=== PATIENT | female | born 1975 | race Caucasian/White ===

== ENCOUNTER → 2021-05-16 02:22 | Outpatient (CLI) | payer OTHER, SELFPAY ==
[2021-05-17 15:38] LABS: SARS-CoV-2 RNA PCR Negative
== END ==
PROVIDERS: Visit Provider Surgery Plastic and Reconstructive Surgery
DX: Z01.812 Encounter for preprocedural laboratory examination (principal); Z20.822 Contact with and (suspected) exposure to COVID-19
CPT/HCPCS: C9803; U0003; U0005

== ENCOUNTER 2021-05-16 08:35 | Outpatient (CLI) | payer OTHER, SELFPAY ==
--- NOTE | 2021-05-16 08:41 | ECG_ITS ---
Measurements Intervals [place] Rate: 88 P: 44 ND: 164 QRS: 52 QRSD: 88 T: 28 QT: 335 QTc: 406 Interpretive Statements SINUS RHYTHM MINIMAL Q WAVES- INFERIOR LEADS NONSPECIFIC T-WAVE ABNORMALITY- ANTERIOR LEADS BASELINE ARTIFACT- I, III, V3, V5-V6 BORDERLINE ECG Electronically Signed On 05-16-2021 8:51:01 CDT by Olaf Desir D.O.
== END 2021-05-16 08:36 | disposition home or self-care (01) ==
LOC: ANHSURGERY 08:39
PROVIDERS: Visit Provider Surgery Plastic and Reconstructive Surgery
DX: I10 Essential (primary) hypertension (principal); Z01.818 Encounter for other preprocedural examination; R94.31 Abnormal electrocardiogram [ECG] [EKG]
CPT/HCPCS: 93005

== ENCOUNTER 2021-05-19 01:20 | Day surgery (SDC) | payer OTHER, SELFPAY ==
[2021-05-12 15:55] VITALS: BMI 35.2
--- NOTE | 2021-05-18 10:13 | WPDANESEPPF ---
Anes - Initial Pre Proc Eval Procedure: Operation Date: 05/19/21 12:00 Proposed Procedures p Bilateral Breast Reduction - Edmond Doe MD Date/Time: 05/18/21 10:13 Surgeon: Edmond Doe MD Pre Op Diagnosis: macromastia Patient Data Age: 46 Gender: F Height: 1.7 m Weight: 102.06 kg Allergies Allergy/AdvReac Type Severity Reaction Status Date / Time amoxicillin Allergy Mild Rash Verified 05/19/21 10:19 Penicillins Allergy Mild Rash Verified 05/19/21 10:19 Home Medications Medication Instructions Recorded Confirmed Type aspirin 81 mg tablet,delayed 81 mg PO DAILY 04/06/21 05/12/21 History release mecobalamin (vitamin B12) IM [id number] 04/06/21 History metoprolol succinate 25 mg 25 mg PO HS 04/06/21 05/19/21 History tablet,extended release 24 hr omeprazole 20 mg capsule,delayed 20 mg PO HS 04/06/21 05/12/21 History release sertraline 100 mg tablet 100 mg PO HS 04/06/21 05/12/21 History tumeric 100 mg-neeraj 150 mg-olive 1 cap PO DAILY 04/06/21 05/19/21 History 50 mg-oreg 150 mg-caprylate capsule acetaminophen [Tylenol Arthritis] 650 mg PO Q12H PRN 05/12/21 05/12/21 History cholecalciferol (vitamin D3) 125 mcg PO DAILY 05/12/21 05/19/21 History [Vitamin D3] cyclobenzaprine [Flexeril] 5 mg PO HS PRN 05/12/21 05/12/21 History docusate sodium 100 mg capsule 100 mg PO BID #14 cap 05/16/21 Rx enoxaparin 40 mg/0.4 mL 40 mg SUBCUT DAILY 14 Days #5.6 ml 05/16/21 05/16/21 Rx subcutaneous syringe hydrocodone 5 mg-acetaminophen 325 1 tablet PO Q6H PRN #15 tablet 05/16/21 05/16/21 Rx mg tablet ondansetron HCl 4 mg tablet 4 mg PO Q6H PRN #30 tablet 05/16/21 Rx Patient hx anesthesia problems: post op nausea/vomiting Family hx anesthesia problems: none PMFSH Past Medical History Medical History (Updated 05/16/21 @ 10:43 by Conchis Arango CMA) Calcium pyrophosphate deposition disease Factor 5 Leiden mutation, heterozygous High cholesterol Hypertension Surgical History Surgical History (Updated 05/18/21 @ 10:13 by Lowell Matthews DO) History of cholecystectomy History of hernia repair History of knee surgery Right ACL x2 Left ACL History of tubal ligation Social History Social History Smoking status: Never smoker Second hand tobacco smoke exposure: No Alcohol intake: current Alcohol use details: socially; 4-6 drinks every few weeks maybe Substance use: unknown Substance use type: does not use Living arrangements: with family Spiritual care concerns: No Anes - Eval Final PreProcedure Day of Procedure 05/18/21 10:13 Patient weight: obese Heart: regular rate and rhythm Lungs: clear to auscultation and normal air movement Airway: Mallampati scale class II Neurological: alert and oriented Last oral intake: >/= 8 hours ASA classification: III Emergent: no Anesthetic plan: proceed Anesthesia type and monitoring: general LMA and standard monitoring Informed Consent: The patient's anesthetic plan and its attendant risks and benefits were discussed with the patient/family/POA. Questions were solicited and answers provided to the satisfaction of the patient/family/POA.
[2021-05-19] VITALS (8 sets, daily range): BP systolic 104–144; BP diastolic 58–82; PULSE 77–109; RESP 10–22; TEMP 36.5–36.6; O2SAT 92–100; BMI 35.1
[2021-05-19] MEDS: LACTATED RINGERS 1,000 ML 30 ML IV CONT ×2 (10:50→15:31)
[2021-05-19 11:23] LABS: Urine Cotinine NEGATIVE
[2021-05-19] MEDS: FAMOTIDINE 20 MG/2 ML VIAL IV PUSH (11:49)
[2021-05-19] MEDS: SCOPOLAMINE 1.5 MG PATCH TRANSDERM (11:49)
--- NOTE | 2021-05-19 11:49 | SUR.PREOP ---
1149- Notified patient procedure start time will be delayed. Patient verbalized understanding.
--- NOTE | 2021-05-19 12:24 | WPDHPUPDATE1 ---
History and Physical Update Update Date/Time: 05/19/21 12:24 History and Physical has been reviewed, including an updated exam of the patient. There are NO changes in the patient's condition. Risks, benefits, and alternatives have been discussed and questions answered. Patient agrees to proceed with procedure.
--- NOTE | 2021-05-19 12:50 | W.PM.PROC2 ---
Procedure Note - Detailed Date of Procedure 05/19/21 Pre-op Diagnosis macromastia Post-op Diagnosis same Procedure Performed Bilateral Reduction Mammaplasty Surgeon Edmond Doe MD Anesthesia general Findings Bilateral Inverted T Superior Pedicle Reduction Mammplasty Tissure removed: Right - 793.5 grams Left - 784.7 grams Description of Procedure She is here today for bilateral breast reduction. Previously and again today the risks, benefits, alternatives were discussed in extensive detail. I wanted her to be very realistic about the risks involved as well as expectations. We discussed aftercare and what to monitor for. She understands we can never guarantee final breast size and there will always be asymmetry. I was very upfront and honest about the risks of sensation change and even nipple loss (). Made sure answered all of her questions to her satisfaction today and consent was obtained. She was marked in the preoperative holding area with their verification. The patient was taken to the operating room placed supine on the operating table. Anesthesia was provided by anesthesiology. She was prepped and draped in a standard sterile fashion. A surgical time-out was taken. Stab incisions were made and I tumessed with a tumescent solution. I marked out the nipple-areolar complex at 42 mm. I then de-epithelialized the pedicle. The pedicle was well left well more than 2 cm in thickness. I then removed the inferior portion of the breast as well as the central keel to get shape based on preoperative planning. At this point copiously irrigated with saline solution and verified a strict hemostasis. I reapproximated the pillars using a 2-0 PDS as well as along the IMF. I tailor tacked the breast into place with jeffrey. She was placed in a sitting position. I verified the nipple-areolar complex position based on preoperative markings, intraoperative measurements, and observation which were in full agreement. This nipple-areolar complex was marked at 42 mm in size. I then placed supine and de-epithelialized this. There was a slight projection / shape discrepancy and suction lipectomy (minimal volume) based on S.A.F.E. technique was utilized with a 5mm basket cannula. Nipple-areolar complex was inset with 3-0 Monocryl. I closed the vertical incision with 3-0 Monocryl in the IMF with 3-0 stratafix. Then everything was closed using a running subcuticular 4-0 Monocryl followed by Steri-Strips. A dressing was placed followed by surgical bra. Patient was awoke and taken to PACU without difficulty. All instrument sponge counts were correct at the end of the case. Estimated Blood Loss 50 Drains No Packing No Pathology yes (Bilateral breast tissue) Complications No immediate complications Condition stable Disposition PACU
[2021-05-19] MEDS: ceFAZolin 2 GM/D5W 50 ML 2 GM/50 ML BAG IVPB (13:05)
[2021-05-19] MEDS: TRANEXAMIC ACID 1,000MG/ISO100 1,000 MG/100 ML BAG 200 MG IVPB (13:05)
[2021-05-19] MEDS: LACTATED RINGERS IRRIG 1,000 ML, LIDOCAINE HCL 1% LOCAL INJ 50 ML, EPINEPHrine HCL INJ ... INFILTRATE (14:23)
[2021-05-19] MEDS: ONDANSETRON INJ 4 MG/2 ML VIAL IV PUSH (17:01)
== END 2021-05-19 17:35 | disposition home or self-care (01) ==
PROVIDERS: Visit Provider Surgery Plastic and Reconstructive Surgery
PROC: 0HBV0ZZ Excision of Bilateral Breast, Open Approach (ICD-10-PCS; CPT 19318; principal; 2021-05-19 12:00)
DX: N62 Hypertrophy of breast (principal); D68.51 Activated protein C resistance; I10 Essential (primary) hypertension; E78.00 Pure hypercholesterolemia, unspecified; Z79.82 Long term (current) use of aspirin; E66.9 Obesity, unspecified; Z68.35 Body mass index [BMI] 35.0-35.9, adult; Z79.899 Other long term (current) drug therapy
CPT/HCPCS: 19318; 80307; 88305; 93005; A9270; C9803; J0131; J0171; J0690; J1100; J1170; J2250; J2405; J2704; J2710; J3010; J7120; U0003; U0005